=== PATIENT | male | born 1975 | race American Indian/Alaskan Native ===

== ENCOUNTER 2019-05-03 07:37 | Emergency (ER) | payer SELFPAY ==
[2019-05-03 07:46] VITALS: BP 132/72
[2019-05-03 08:02] LABS: Basophils # (Auto) 0.1 K/mm3 (0.0-0.1); Basophils % (Auto) 0.7 % (0.0-1.8); Eosinophils # (Auto) 0.2 K/mm3 (0.0-0.4); Hematocrit 43.5 % (35.5-45.6); Hemoglobin 14.2 gm/dl (11.8-15.2); Lymphocytes # (Auto) 1.6 K/mm3 (1.2-5.4); Lymphocytes % (Auto) 17.2 % (13.4-35.0); Mean Corpuscular HGB Conc 33 % (32-34); Mean Corpuscular Volume 80 fl (84-94); Monocytes # (Auto) 0.6 K/mm3 (0.0-0.8); Monocytes % (Auto) 6.2 % (0.0-7.3); Platelet Count 175 K/mm3 (140-440); Red Blood Count 5.45 M/mm3 (3.65-5.03); Red Cell Distribution Width 14.7 % (13.2-15.2)
[2019-05-03 08:23] LABS: Alanine Aminotransferase 17 units/L (7-56); Albumin 4.2 g/dL (3.9-5); BUN/Creatinine Ratio 11; Blood Urea Nitrogen 12 mg/dL (9-20); Calcium 9.2 mg/dL (8.4-10.2); Hemolysis Index 17
--- NOTE | 2019-05-03 08:35 | Emergency Department Report ---
ED Abdominal Pain HPI - General Chief Complaint: Abdominal Pain Stated Complaint: ABD PAIN Time Seen by Provider: 05/03/19 08:29 Source: patient Mode of arrival: Ambulatory Limitations: No Limitations - History of Present Illness Initial Comments: Mr. Avilez is a very pleasant 53-year-old male without significant past medical history who presents with severe right upper quadrant abdominal pain. His is at the bedside. She provided additional history. For the past 7 years he's had pain after eating. Also has had bloody diarrhea. The pain was so severe this morning that it brought him to tears. He has a PCP HE HAS NOT MADE HIS PRIMARY CARE PHYSICIAN AWARE OF THE SYMPTOMS. CURRENTLY HE IS PAIN-FREE. THE PAIN LASTED APPROXIMATELY 30 MINUTES TO ONE HOUR. NO ASSOCIATED FEVER. THE HOWEVER HE DID HAVE NAUSEA TODAY. HE ONLY DRINKS ALCOHOL ON THE WEEKENDS. DOES NOT SMOKE TOBACCO. FAMILY MEMBERS ARE HEALTHY. HE DID HAVE A GRANDFATHER PROSTATE CANCER. HE WORKS IN A FACTORY. HIS PCP IS IN [place]. HE AND HIS ARE VISITING FROM [facility]. Complaint: abdominal pain -: Gradual, year(s) (7), This morning Radiation: RUQ Severity: severe Quality: stabbing, sharp Consistency: now resolved Improves With: nothing Worsens With: nothing Associated Symptoms: nausea - Related Data Previous Rx's Medication Instructions Recorded Last Taken Type Promethazine [Phenergan] 25 mg PO Q6HR PRN #10 tab 05/03/19 Unknown Rx levoFLOXacin [Levaquin TAB] 500 mg PO QDAY 7 Days #7 tablet 05/03/19 Unknown Rx metroNIDAZOLE [Flagyl TAB] 500 mg PO Q12HR 7 Days #14 tab 05/03/19 Unknown Rx oxyCODONE /ACETAMINOPHEN [Percocet 1 tab PO Q6HR PRN #10 tablet 05/03/19 Unknown Rx 5/325] Allergies Allergy/AdvReac Type Severity Reaction Status Date / Time No Known Allergies Allergy Unverified 05/03/19 07:40 ED Review of Systems ROS: Stated complaint: ABD PAIN Other details as noted in HPI Comment: All other systems reviewed and negative Constitutional: denies: fever, malaise Cardiovascular: denies: chest pain ED Past Medical Hx - Past Medical History Previous Medical History?: No - Surgical History Past Surgical History?: No - Social History Smoking Status: Never Smoker Substance Use Type: None - Medications Home Medications: Home Medications Medication Instructions Recorded Confirmed Last Taken Type Promethazine [Phenergan] 25 mg PO Q6HR PRN #10 tab 05/03/19 Unknown Rx levoFLOXacin [Levaquin TAB] 500 mg PO QDAY 7 Days #7 tablet 05/03/19 Unknown Rx metroNIDAZOLE [Flagyl TAB] 500 mg PO Q12HR 7 Days #14 tab 05/03/19 Unknown Rx oxyCODONE /ACETAMINOPHEN [Percocet 1 tab PO Q6HR PRN #10 tablet 05/03/19 Unknown Rx 5/325] ED Physical Exam - General Limitations: No Limitations General appearance: alert, in no apparent distress - Head Head exam: Present: atraumatic, normocephalic - Eye Eye exam: Present: normal appearance - ENT ENT exam: Present: mucous membranes moist - Neck Neck exam: Present: normal inspection, full ROM - Respiratory Respiratory exam: Present: normal lung sounds bilaterally. Absent: respiratory distress, wheezes, rales, rhonchi - Cardiovascular Cardiovascular Exam: Present: regular rate, normal rhythm, normal heart sounds. Absent: systolic murmur, diastolic murmur, rubs, gallop - GI/Abdominal GI/Abdominal exam: Present: soft, normal bowel sounds. Absent: distended, tenderness, guarding, rebound - Rectal Rectal exam: Present: deferred - Extremities Exam Extremities exam: Present: normal inspection - Back Exam Back exam: Present: normal inspection - Neurological Exam Neurological exam: Present: alert, oriented X3 - Psychiatric Psychiatric exam: Present: normal affect, normal mood - Skin Skin exam: Present: warm, dry, intact, normal color. Absent: rash ED Course Vital Signs 05/03/19 07:44 Temperature 97.5 F L Pulse Rate 51 L Respiratory 18 Rate Blood Pressure 132/72 O2 Sat by Pulse 100 Oximetry ED Medical Decision Making - Lab Data Result diagrams: 05/03/19 07:48 05/03/19 07:48 - Radiology Data Radiology results: report reviewed CT abdomen and pelvis findings of acute cholecystitis with gallbladder wall inflammation and surrounding pericholecystic fluid - Medical Decision Making Mr. Meza presents with 7 years of recurrent abdominal pain. Now with severe right upper quadrant abdominal pain. He is currently pain-free without any intervention. Findings of acute uncomplicated cholecystitis. Considering he lives in [facility], he desires outpatient therapy with close follow-up w ith his PCP. His will ensure follow-up with his PCP tomorrow. I have prescribed Levaquin and metronidazole. First doses is provided here in the ER today. He is a good candidate for outpatient therapy considering patient is afebrile with stable vital signs, no evidence of obstruction by laboratory values, no underlying medical problems, young age. Also prescribed: [place] Promethazine. and patient both understand return precautions. I also provided copies of lab and CT test results. and patient will take these documents to his PCP tomorrow. They both understand that this condition is definitively treated with cholecystectomy. However uncomplicated cholecystitis may resolve with antibiotics. Critical care attestation.: If time is entered above; I have spent that time in minutes in the direct care of this critically ill patient, excluding procedure time. ED Disposition Clinical Impression: Acute cholecystitis Disposition: DC-01 TO HOME OR SELFCARE Is pt being admited?: No Does the pt Need Aspirin: No Condition: Stable Additional Instructions: Please see your primary physician in [place] this week as soon as possible. Your diagnosis is acute cholecystitis. Please provide your physician with the results of the lab tests and CT scan. Prescriptions: metroNIDAZOLE [Flagyl TAB] 500 mg PO Q12HR 7 Days #14 tab levoFLOXacin [Levaquin TAB] 500 mg PO QDAY 7 Days #7 tablet oxyCODONE /ACETAMINOPHEN [Percocet 5/325] 1 tab PO Q6HR PRN #10 tablet PRN Reason: Pain Promethazine [Phenergan] 25 mg PO Q6HR PRN #10 tab PRN Reason: Nausea
[2019-05-03 09:50] LABS: Bilirubin,Urine NEG (Negative); Blood,Urine SM (Negative); Color,Urine Yellow (Yellow); Mucus,Urine FEW /HPF; Protein,Urine <15 mg/dL mg/dL (Negative); Urobilinogen,Urine < 2.0 mg/dL (<2.0); WBC,Urine < 1.0 /HPF (0.0-6.0)
--- NOTE | 2019-05-03 10:11 | Cat Scan Report ---
CT ABDOMEN AND PELVIS WITH IV CONTRAST, 05/03/2019 INDICATION: Right upper quadrant pain for 2 weeks. TECHNIQUE: Following the administration of intravenous contrast, multiple axial CT images of the abdo men and pelvis were acquired. Sagittal and coronal reformats were obtained. All CT performed at this facility utilize dose reduction techniques including automated exposure control, iterative reconstru ction and weight based dosing when appropriate to reduce patient radiation dose to as low as reasonab ly achievable. COMPARISON: None FINDINGS: Limited imaging of the bilateral lung bases demonstrates no evidence of acute abnormality. Abdomen: The gallbladder is mildly distended and demonstrates moderate wall thickening and small amou nt of pericholecystic fluid. No radiodense stones are clearly identified. The liver, spleen, stomach, pancreas, bilateral adrenal glands and bilateral kidneys demonstrate no evidence of acute abnormalit y. There is no evidence of bowel obstruction. The appendix is visualized and appears normal. Pelvis: No free fluid is seen within the pelvis. The urinary bladder appears within normal limits. Evaluation of bony structures demonstrates no evidence of acute bony abnormality. IMPRESSION: 1. Gallbladder wall thickening with pericholecystic fluid, most compatible with acute cholecystitis. No radiodense gallstones are identified. Signer Name: Marguerite Cortez MD Signed: 05/03/2019 10:07 AM Workstation Name: [id number]
[2019-05-03] MEDS ORDERED: LEVAQUIN PO ONE (10:21)
[2019-05-03] MEDS ORDERED: FLAGYL PO ONE (10:21)
== END 2019-05-03 10:53 | disposition home or self-care (01) ==
LOC: ED 07:37
DX: K81.0 Acute cholecystitis (principal)
CPT/HCPCS: 36415; 74177; 80053; 81001; 83690; 85025; 99284; Q9967